=== PATIENT | female | born 1990 | race Caucasian/White ===

== ENCOUNTER 2019-06-26 18:19 | Emergency (ER) | payer OTHER ==
[2019-06-26] MEDS ORDERED: traMADol 50 MG Tab PO ONE (19:16)
--- NOTE | 2019-06-26 19:22 | EDM.PDOC ---
ED HPI GENERAL MEDICAL PROBLEM - General Chief Complaint: Lower Extremity Injury/Pain Stated Complaint: LT ANKLE INJURY Time Seen by Provider: 06/26/19 18:35 Source of Information: Reports: Patient, RN Notes Reviewed History Limitations: Reports: No Limitations - History of Present Illness INITIAL COMMENTS - FREE TEXT/NARRATIVE: Patient is a 28-year-old female who presents to the ED for the evaluation of a left ankle injury. 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 She is able to walk on this however it is very painful to do so. She states really any sort of pressure on the heel of her foot provides more pressure into her ankle. This is on the outer aspect of her ankle. Her pain is a 7 out of 10, she notes this to be a throbbing/aching pain in nature. There is mild amount of edema noted. She thought maybe she felt or heard something pop or tear in the area. She states she's been using 800 mg of ibuprofen every 6 hours and icing this and is not given her much relief. The patient states that her work has forced her to come to the ER to be evaluated to see if there is any further injury that would require medical assistance. Left Ankle Pain Score (Numeric/FACES): 7 - Related Data Allergies Allergy/AdvReac Type Severity Reaction Status Date / Time No Known Allergies Allergy Verified 06/26/19 19:22 Home Meds: Home Meds traMADol [Ultram] 50 mg PO Q6H PRN #28 tab 06/26/19 [Rx] Social & Family History - Tobacco Use Smoking Status *Q: Current Every Day Smoker Years of Tobacco use: 10 Packs/Tins Daily: 1 - Caffeine Use Caffeine Use: Reports: Coffee - Recreational Drug Use Recreational Drug Use: Yes Recreational Drug Type: Reports: Marijuana/Hashish Other Recreational Drug Type: has prescription but hasn't used since she moved here Review of Systems - Review of Systems Review Of Systems: ROS reveals no pertinent complaints other than HPI. Constitutional: Reports: No Symptoms Eyes: Reports: No Symptoms Ears: Reports: No Symptoms Nose: Reports: No Symptoms Mouth/Throat: Reports: No Symptoms Respiratory: Reports: No Symptoms Cardiovascular: Reports: No Symptoms GI/Abdominal: Reports: No Symptoms Genitourinary: Reports: No Symptoms Musculoskeletal: Reports: Joint Pain (left ankle) Skin: Denies: Bruising Neurological: Denies: Numbness, Tingling Psychiatric: Reports: No Symptoms ED EXAM, GENERAL - Physical Exam Exam: See Below Exam Limited By: No Limitations General Appearance: Alert, WD/WN, No Apparent Distress Eye Exam: Bilateral Eye: EOMI Ears: Normal External Exam Throat/Mouth: Normal Inspection, Normal Lips, Normal Teeth, Normal Gums, Normal Oropharynx, Normal Voice, No Airway Compromise Head: Atraumatic, Normocephalic Neck: Normal Inspection Respiratory/Chest: No Respiratory Distress, Lungs Clear, Normal Breath Sounds, No Accessory Muscle Use, Chest Non-Tender Cardiovascular: Normal Peripheral Pulses, Regular Rate, Rhythm, No Murmur Peripheral Pulses: 3+: Dorsalis Pedis (L), Dorsalis Pedis (R) Back Exam: Normal Inspection Extremities: Normal Inspection, Normal Range of Motion, Normal Capillary Refill , Joint Swelling (mild inferiolateral swelling appreciated with tenderness to the area.) Neurological: Alert, Oriented, Normal Cognition, No Motor/Sensory Deficits Psychiatric: Normal Affect, Normal Mood Skin Exam: Warm, Dry, Intact, Normal Color, No Rash Course - Vital Signs Last Recorded V/S: Last Vital Signs Temp 97.8 F 06/26/19 18:34 Pulse 94 06/26/19 18:34 Resp 16 06/26/19 18:34 BP 121/76 06/26/19 18:34 Pulse Ox 98 06/26/19 18:34 - Orders/Labs/Meds Orders: Active Orders 24 hr Category Date Time Status Ankle Min 3V Lt [CR] Stat Exams 06/26/19 18:39 Ordered Labs: Laboratory Tests 06/26/19 Range/Units 19:05 HCG, Qual Negative (NEGATIVE) Meds: Medications Discontinued Medications Generic Name Dose Route Start Last Admin Trade Name Freq PRN Reason Stop Dose Admin Tramadol HCl 50 mg 06/26/19 19:16 06/26/19 19:25 Ultram PO 06/26/19 19:17 50 mg ONETIME ONE Administration - Re-Assessments/Exams Free Text/Narrative Re-Assessment/Exam: 06/26/19 19:19 Patient presents to the ED for the evaluation of a left ankle injury. Did order x-rays and a qualitative hCG to be obtained, although the patient states she has not had sexual intercourse in over one year so denies any chance of . Did order 50mg PO Tramadol for pain management, and she states she is not getting much relief from 800 mg Q6H ibuprofen. 06/26/19 19:37 Patient's test was negative at this time, the ankle x-ray has been completed and it does not demonstrate any sort of acute bony fracture or abnormality, all mortise joints are within normal limits. However official radiology read is pending at this time. 06/26/19 20:13 Patient states that her ride is here and cannot wait for radiology results, she' ll be called and made known if anything should show up acutely. Again I could not see anything acute. She refused a walking boot. Departure - Departure Time of Disposition: 19:20 Disposition: Home, Self-Care 01 Condition: Fair Clinical Impression: Left ankle sprain Qualifiers: Encounter type: initial encounter Involved ligament of ankle: unspecified ligament Qualified Code(s): S93.402A - Sprain of unspecified ligament of left ankle, initial encounter - Discharge Information *PRESCRIPTION DRUG MONITORING PROGRAM REVIEWED*: No *COPY OF PRESCRIPTION DRUG MONITORING REPORT IN PATIENT SADE: No Prescriptions: traMADol [Ultram] 50 mg PO Q6H PRN #28 tab PRN Reason: Pain Instructions: Ankle Sprain, [id number] Referrals: PCP,None [Primary Care Provider] - Forms: ED Department Discharge, ED Return to Work/School Form Additional Instructions: You have been evaluated in the ED for your Left ankle injury. Your x-ray demonstrated no acute fracture or bony abnormality. Please use ice as tolerated to the affected area. Please try to elevate the affected area to relieve swelling. You may take Tylenol 500 mg or ibuprofen 600mg q6 hrs for pain relief. Please do so until you have a tolerable level of pain with activity. Do not exceed 4000mg Tylenol or 3200mg ibuprofen in a 24 hour time period. You were given a prescription for tramadol, please take one tablet every 4-6 hours as needed for further pain relief. You were given enough for one week. Please return to ED if your symptoms should change or worsen. - My Orders Last 24 Hours: My Active Orders 06/26/19 18:39 Ankle Min 3V Lt [CR] Stat - Assessment/Plan Last 24 Hours: My Active Orders 06/26/19 18:39 Ankle Min 3V Lt [CR] Stat
--- NOTE | 2019-06-27 07:30 | CR ---
Left ankle: Four views of the left ankle were obtained. Comparison: No previous study. Ankle mortise is symmetric. No fracture, dislocation or other bony abnormality is seen. Impression: 1. No abnormality is appreciated on left ankle exam. Diagnostic code #1
== END 2019-06-26 20:15 | disposition home or self-care (01) ==
LOC: JD.ED 18:19
DX: S93.402A Sprain of unspecified ligament of left ankle, initial encounter (principal); F17.210 Nicotine dependence, cigarettes, uncomplicated; X50.1XXA Overexertion from prolonged static or awkward postures, initial encounter
CPT/HCPCS: 36415; 73610; 84703; 99283; A9270

== ENCOUNTER 2019-10-12 09:58 | Emergency (ER) | payer SELFPAY ==
[2019-10-12] MEDS ORDERED: Sodium Chloride 0.9% 10 ML Syringe FLUSH PRN (10:42)
[2019-10-12] MEDS ORDERED: Metoclopramide 10 MG/2 ML SDV IVPUSH ONE (10:44)
[2019-10-12] MEDS ORDERED: diphenhydrAMINE 50 MG/ML SDV IVPUSH ONE (10:44)
[2019-10-12] MEDS ORDERED: Ketorolac 30 MG/ML SDV IVPUSH SCH (10:45)
[2019-10-12] MEDS ORDERED: Acetaminophen 325 MG Tab PO ONE (10:45)
[2019-10-12] MEDS ORDERED: Sodium Chloride 0.9% 1,000 ML IV SCH (10:45)
--- NOTE | 2019-10-12 12:03 | EDM.PDOC ---
ED HPI GENERAL MEDICAL PROBLEM - General Chief Complaint: General Stated Complaint: [facility] Time Seen by Provider: 10/12/19 10:27 Source of Information: Reports: Patient, RN Notes Reviewed - History of Present Illness INITIAL COMMENTS - FREE TEXT/NARRATIVE: 20-year-old female who had onset of cough congestion sore throat headache 2 days ago. The Teresa and muscle aches became much worse yesterday with along with fever chills, low energy. That continues today. She actually came in by ambulance short time ago. Her cough is mostly nonproductive. Her mouth feels dry. 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 [No Known Home Meds] 10/12/19 [History] Past Medical History - Past Health History Medical/Surgical History: Denies Medical/Surgical History Social & Family History - Family History Family Medical History: Noncontributory - Tobacco Use Smoking Status *Q: Current Every Day Smoker Years of Tobacco use: 5 Packs/Tins Daily: 0.5 - Caffeine Use Caffeine Use: Reports: Coffee, Energy Drinks, Soda - Recreational Drug Use Recreational Drug Use: No ED ROS GENERAL - Review of Systems Review Of Systems: See Below HEENT: Reports: Rhinitis, Sinus Problem (Nasal and sinus congestion), Throat Pain Respiratory: Denies: Shortness of Breath Cardiovascular: Reports: Chest Pain GI/Abdominal: Reports: Nausea. Denies: Abdominal Pain (With coughing), Vomiting Musculoskeletal: Reports: Other Skin: Denies: Rash (Generalized achiness) Neurological: Reports: Dizziness, Headache ED EXAM, GENERAL - Physical Exam Exam: See Below General Appearance: Alert, Moderate Distress Nose: Other (There is nasal congestion) Throat/Mouth: Other (Oral mucosa mildly dry) Head: Atraumatic Respiratory/Chest: No Respiratory Distress, Lungs Clear, Normal Breath Sounds Cardiovascular: Tachycardia Extremities: Normal Inspection, Normal Range of Motion Neurological: Alert, Oriented, No Motor/Sensory Deficits Skin Exam: Warm, Dry, Normal Color Course - Vital Signs Last Recorded V/S: Last Vital Signs Temp 99.8 F 10/12/19 10:02 Pulse 113 H 10/12/19 10:02 Resp 18 10/12/19 10:02 BP 120/83 10/12/19 10:02 Pulse Ox 91 L 10/12/19 10:02 - Orders/Labs/Meds Orders: Active Orders 24 hr Category Date Time Status Peripheral IV Care [RC] . DIRECTED Care 10/12/19 10:42 Active Ketorolac [Toradol] Med 10/12/19 10:45 Active 30 mg IVPUSH ONETIME Sodium Chloride 0.9% [Normal Saline] 1,000 ml Med 10/12/19 10:45 Active IV ONETIME Sodium Chloride 0.9% [Saline Flush] Med 10/12/19 10:42 Active 10 ml FLUSH ASDIRECTED PRN Peripheral IV Insertion Adult [OM.PC] Stat Oth 10/12/19 10:42 Ordered Medication Orders Sodium Chloride (Normal Saline) 1,000 mls @ 999 mls/hr IV ONETIME NATALYA Last Admin: 10/12/19 11:29 Dose: 999 mls/hr Ketorolac Tromethamine (Toradol) 30 mg IVPUSH ONETIME NATALYA Last Admin: 10/12/19 11:29 Dose: 30 mg Sodium Chloride (Saline Flush) 10 ml FLUSH ASDIRECTED PRN PRN Reason: Keep Vein Open Last Admin: 10/12/19 11:29 Dose: 10 ml Meds: Medications Generic Name Dose Route Start Last Admin Trade Name Freq PRN Reason Stop Dose Admin Sodium Chloride 1,000 mls @ 999 mls/hr 10/12/19 10:45 10/12/19 11:29 Normal Saline IV 999 mls/hr ONETIME NATALYA Administration Ketorolac Tromethamine 30 mg 10/12/19 10:45 10/12/19 11:29 Toradol IVPUSH 30 mg ONETIME NATALYA Administration Sodium Chloride 10 ml 10/12/19 10:42 10/12/19 11:29 Saline Flush FLUSH 10 ml ASDIRECTED PRN Administration Keep Vein Open Discontinued Medications Generic Name Dose Route Start Last Admin Trade Name Freq PRN Reason Stop Dose Admin Acetaminophen 975 mg 10/12/19 10:45 10/12/19 11:28 Tylenol PO 10/12/19 10:46 975 mg NOW ONE Administration Diphenhydramine HCl 25 mg 10/12/19 10:44 10/12/19 11:29 Benadryl IVPUSH 10/12/19 10:45 25 mg ONETIME ONE Administration Metoclopramide HCl 5 mg 10/12/19 10:44 10/12/19 11:29 Reglan IVPUSH 10/12/19 10:45 5 mg ONETIME ONE Administration - Re-Assessments/Exams Free Text/Narrative Re-Assessment/Exam: 10/12/19 12:07 There was initial plan to do an influenza screen but then based on her symptoms being so strongly oval and suggestive for influenza I did cancel that. Given her a liter of IV fluid. We have given Reglan Benadryl and Toradol IV for muscle aches and headache. She is very weepy, wondering how she is going to manage with this. Assured her that over the next 24-48 hours this is all going to get better. Her vitals are all relatively stable. Discharge instructions as documented. Departure - Departure Time of Disposition: 11:59 Disposition: Home, Self-Care 01 Condition: Fair Clinical Impression: Influenza - Discharge Information Referrals: PCP,None [Primary Care Provider] - Forms: ED Department Discharge Additional Instructions: The symptoms you have of fever, headache, sore throat, nasal and sinus congestion cough, muscle aches are all extremely compatible with influenza. Therefore influenza screen has not been done today. This typically takes 3-5 days to run its course but the first 2 days are the worst. You've been given IV fluid, multiple medications for your headache and muscle aching. Continue to drink plenty of fluids at home. Alternate Tylenol and Advil or ibuprofen as needed. But our [facility] medical clinic if not much better by next Tuesday as expected. Next year be sure to get you influenza vaccination. It does reduce your liklihood of getting influenza for any give year by about 70 %. Sepsis Event Note - Evaluation Sepsis Screening Result: No Definite Risk - Focused Exam Vital Signs: Vital Signs Temp Pulse Resp BP Pulse Ox 10/12/19 10:02 99.8 F 113 H 18 120/83 91 L Date Exam was Performed: 10/12/19 Time Exam was Performed: 12:03 - My Orders Last 24 Hours: My Active Orders 10/12/19 10:42 Peripheral IV Care [RC] . DIRECTED Sodium Chloride 0.9% [Saline Flush] 10 ml FLUSH ASDIRECTED PRN Peripheral IV Insertion Adult [OM.PC] Stat 10/12/19 10:45 Ketorolac [Toradol] 30 mg IVPUSH ONETIME Sodium Chloride 0.9% [Normal Saline] 1,000 ml IV ONETIME - Assessment/Plan Last 24 Hours: My Active Orders 10/12/19 10:42 Peripheral IV Care [RC] . DIRECTED Sodium Chloride 0.9% [Saline Flush] 10 ml FLUSH ASDIRECTED PRN Peripheral IV Insertion Adult [OM.PC] Stat 10/12/19 10:45 Ketorolac [Toradol] 30 mg IVPUSH ONETIME Sodium Chloride 0.9% [Normal Saline] 1,000 ml IV ONETIME
== END 2019-10-12 12:58 | disposition home or self-care (01) ==
LOC: JD.ED 09:58
DX: J11.1 Influenza due to unidentified influenza virus with other respiratory manifestations (principal); F17.210 Nicotine dependence, cigarettes, uncomplicated
CPT/HCPCS: 96361; 96374; 96375; 99284; A9270; J1200; J1885; J2765; J7030; 99283